=== PATIENT | female | born 1955 | race Caucasian/White ===

== ENCOUNTER → 2017-04-14 | Outpatient (CLI) | payer OTHER | END | disposition home or self-care (01) | LOC: GMAM 12:03 | PROVIDERS: ATTEND Family Medicine | DX: E21.2 Other hyperparathyroidism (principal); N39.0 Urinary tract infection, site not specified ==

== ENCOUNTER → 2017-06-08 | Outpatient (CLI) | payer OTHER | END | disposition home or self-care (01) | LOC: MAMMO 13:28 | PROVIDERS: ATTEND Family Medicine | DX: Z12.31 Encounter for screening mammogram for malignant neoplasm of breast (principal) ==

== ENCOUNTER → 2017-08-09 | Outpatient (CLI) | payer BC | END | disposition home or self-care (01) | LOC: GMAM 08:49 | PROVIDERS: ATTEND Family Medicine | DX: E21.2 Other hyperparathyroidism (principal) ==

== ENCOUNTER → 2017-08-15 | Outpatient (CLI) | payer BC | END | disposition home or self-care (01) | LOC: GMAM 16:25 | PROVIDERS: ATTEND Family Medicine | DX: E21.2 Other hyperparathyroidism (principal) ==

== ENCOUNTER → 2017-12-08 | Outpatient (CLI) | payer BC, SELFPAY | END | disposition home or self-care (01) | LOC: GMAM 09:29 | PROVIDERS: ATTEND Family Medicine | DX: E21.2 Other hyperparathyroidism (principal) ==

== ENCOUNTER → 2018-01-09 | Outpatient (CLI) | payer BC | LOC: GMAM 14:24 | PROVIDERS: ATTEND Family Medicine | DX: E21.2 Other hyperparathyroidism (principal); E55.9 Vitamin D deficiency, unspecified ==

== ENCOUNTER → 2018-01-30 | Outpatient (CLI) | payer BC ==
--- NOTE | 2018-01-30 10:30 | US ---
LIMITED ABDOMINAL ULTRASOUND HISTORY:ELEVATED LFT'S COMPARISON: None TECHNIQUE: Grayscale and color Doppler sonographic evaluations of abdominal visceral organs FINDINGS: Liver demonstrates diffusely increased echotexture. No focal mass nor abnormal intrahepatic biliary distention. Major portal veins are patent with unremarkable directions of flow. Gallbladder is unremarkable in appearance with normal wall thickness. No shadowing stones nor pericholecystic fluid is identified. No sonographic Anand's sign. Common bile duct measures 5.5 mm in diameter. Pancreas is suboptimally visualized. Visualized portions of right kidney demonstrate no shadowing stone, hydronephrosis nor cortical lesion. IMPRESSION: 1. No cholelithiasis nor sonographic suggestion of cholecystitis. 2. No abnormal intrahepatic and extrahepatic biliary distention. 3. Either fatty infiltration or parenchymal disease in liver. Electronically signed by: Pepito Rodriguez MD 01/30/2018 10:29 AM [employer]TER
== END ==
LOC: US 09:35
PROVIDERS: ATTEND Family Medicine
DX: R94.5 Abnormal results of liver function studies (principal)

== ENCOUNTER → 2018-03-14 | Outpatient (CLI) | payer BC ==
--- NOTE | 2018-03-15 12:11 | MRI ---
EXAM DESCRIPTION: Brain w/wo Contrast: Magnetic Resonance Imaging. CLINICAL HISTORY: LEFT MIDDLE CEREBRAL ARTERY STENOSIS COMPARISON: MRI brain without contrast 04/23/2016. TECHNIQUE: Multiplanar, high-field. MRI, multiple conventional sequences, without and with gadolinium IV contrast. No adverse reactions. Multiple axial diffusion sequences. FINDINGS: Small bilateral multiple foci of hyperintense FLAIR and T2-weighted signal in the periventricular white matter and bob-white matter junctions of the cerebral hemispheres. More right than left. No hemorrhage mass effect or edema. No abnormal contrast enhancement. . Normal signal in the bilateral basal ganglia. No hemorrhage, no cerebral edema, no mass-effect. Normal contrast enhancement. Normal signal in the brainstem and cerebellar hemispheres. No hemorrhage, no cerebral edema, no mass-effect. Normal contrast enhancement. Concordance of the diffusion and non-diffusion sequences with no evidence of acute or subacute infarction. Cortical sulci, ventricles, and other CSF spaces, and the subdural spaces are normally configured for patients age except frontal and posterior parietal lobe cortical sulci are minimally prominent. No effacement or displacement. No midline shift. No extra-axial hemorrhage. Normal contrast enhancement. Normal flow signal void in the major vessels of the cap[place] Robert, and the venous sinuses. IACs are symmetric bilaterally. Minimal edema or fluid signal in the inferior right mastoid air cells; left cells are unremarkable. mastoid air cells. No mass effect bilateral Cerebellopontine angles. Normal contrast enhancement. Pituitary gland occupies less than 50% of the sella. Normal contrast enhancement. Base of the cerebellar tonsils is at the level of the foramen magnum. Unremarkable signal bilateral paranasal sinuses. The bony calvarium is intact. IMPRESSION: 1. Scattered bilateral small hyperintensities in the periventricular white matter more right than left cerebral hemispheres. Some are seen in the bilateral bob-white matter junctions. No hemorrhage mass effect or cerebral edema or abnormal contrast enhancement. These are most likely related to cerebral microvascular disease. Less likely related to demyelination, migraine headaches, vasculitis, or old inflammatory process. No diffusion restriction. 2. More likely chronic than acute inflammatory findings in the right mastoid air cells. 3. Stable since the prior study in March 2016. Electronically signed by: Michele Rooney MD 03/15/2018 12:10 PM CDT
== END ==
LOC: LAB.O 13:22
PROVIDERS: ATTEND Psychiatry & Neurology Neurology
DX: G20 Parkinson's disease (principal); I66.02 Occlusion and stenosis of left middle cerebral artery; Z01.812 Encounter for preprocedural laboratory examination

== ENCOUNTER → 2018-12-28 | Outpatient (CLI) | payer BC | LOC: GMAM 10:24 | PROVIDERS: ATTEND Family Medicine | DX: E21.2 Other hyperparathyroidism (principal); E55.9 Vitamin D deficiency, unspecified ==

== ENCOUNTER → 2019-04-02 | Outpatient (CLI) | payer BC | LOC: GMAM 15:01 | PROVIDERS: ATTEND Family Medicine | DX: E21.2 Other hyperparathyroidism (principal) ==

== ENCOUNTER → 2019-08-30 | Outpatient (CLI) | payer BC ==
--- NOTE | 2019-09-04 14:50 | MAM ---
EXAM DESCRIPTION: 3D Screening BILATERAL : Digital Mammography. CLINICAL HISTORY: 64 years Female SCREEN . No complaints. No personal history of breast cancer. Remote family history of breast cancer. Menarche age 12. No childbirth. Postmenopausal. HRT 5 or more years ago.. Lifetime risk of developing breast cancer (Tyrer-Cuzick model)(%): 8.4. COMPARISON: 2-D digital screening bilateral mammography 06/08/2017.. TECHNIQUE: Bilateral CC and MLO projection full-field images, digital tomosynthesis mammographic technique. Bilateral digital 2-D full-field MLO images. CAD not available for tomosynthesis or 2-D images. FINDINGS: The breast parenchymal density pattern is: Heterogeneously dense breast tissue, which may obscure small masses. No skin thickening or nipple retraction. Stable superior lateral right intramammary lymph node. Prominent vascular structures or ducts near the nipple bilaterally stable. No new focal, stellate mass or density, focal asymmetry , and no suspicious microcalcifications bilaterally. Stable mammograms compared to prior study. Taking into account, differences in mammographic technique. IMPRESSION: Benign exam. BIRAD CATEGORY: 2 BENIGN FINDINGS. RECOMMENDATIONS: FOLLOW UP: Routine digital bilateral mammographic screening, one year interval from August 2019. Written communication explaining the IMPRESSION and follow-up, will be mailed to the patient and referring health care provider. According to the [employer], yearly mammograms are recommended starting at age 40 and continuing as long as a woman is in good health. Any breast change noted on a breast self-exam should be reported promptly to the patient's healthcare provider. Breast MRI is recommended for women with an approximately 20-25% or greater lifetime risk of breast cancer, including women with a strong family history of breast or ovarian cancer and women who have been treated for Hodgkin's disease. A negative mammographic report should not delay tissue diagnosis in patients with significant clinical history or physical findings. Extremely dense breast tissue limits the sensitivity of digital mammography. Electronically signed by: Michele Rooney MD 09/04/2019 2:48 PM CDT
== END ==
LOC: GMAM 11:55
PROVIDERS: ATTEND Family Medicine
DX: Z12.31 Encounter for screening mammogram for malignant neoplasm of breast (principal); E21.2 Other hyperparathyroidism; E55.9 Vitamin D deficiency, unspecified; E11.9 Type 2 diabetes mellitus without complications; I10 Essential (primary) hypertension

== ENCOUNTER → 2019-08-31 | Outpatient (CLI) | payer BC | LOC: GMAM 12:28 | PROVIDERS: ATTEND Family Medicine | DX: I10 Essential (primary) hypertension (principal); E11.9 Type 2 diabetes mellitus without complications ==

== ENCOUNTER → 2020-09-29 | Outpatient (CLI) | payer BC | LOC: LAB.NP 11:19 | PROVIDERS: ATTEND Family Medicine | DX: E21.2 Other hyperparathyroidism (principal); E11.9 Type 2 diabetes mellitus without complications; E55.9 Vitamin D deficiency, unspecified; I10 Essential (primary) hypertension ==

== ENCOUNTER → 2020-10-07 | Outpatient (CLI) | payer BC ==
--- NOTE | 2020-10-09 18:30 | MAM ---
EXAM DESCRIPTION: 3D Screening BILATERAL : Digital Mammography. CLINICAL HISTORY: 65 years Female SCREEN . No complaints. Remote family history of breast cancer. Menarche age 12. No childbirth. Menopause age unknown. HRT 5 or more years ago.. Lifetime risk of developing breast cancer (Tyrer-Cuzick model)(%): 8.1. COMPARISON: Bilateral screening digital breast tomosynthesis August 2019 and bilateral screening digital breast 2-D imaging May 2017. TECHNIQUE: Bilateral CC and MLO projection full-field images, digital tomosynthesis mammographic technique. Bilateral digital 2-D full-field MLO images. CAD available for 2-D images. FINDINGS: The breast parenchymal density pattern is: Scattered areas of fibroglandular density. No skin thickening or nipple retraction. Solitary microcalcifications. Intramammary lymph nodes are stable. Retroareolar nodular fibroglandular changes are stable. No new focal, stellate mass or density, focal asymmetry , and no suspicious microcalcifications bilaterally. Stable mammograms compared to prior study. IMPRESSION: Benign exam. BIRAD CATEGORY: 2 BENIGN FINDINGS. RECOMMENDATIONS: FOLLOW UP: Routine digital bilateral mammographic screening, one year interval from September 2020. Written communication explaining the IMPRESSION and follow-up, will be mailed to the patient and referring health care provider. According to the [employer], yearly mammograms are recommended starting at age 40 and continuing as long as a woman is in good health. Any breast change noted on a breast self-exam should be reported promptly to the patient's healthcare provider. Breast MRI is recommended for women with an approximately 20-25% or greater lifetime risk of breast cancer, including women with a strong family history of breast or ovarian cancer and women who have been treated for Hodgkin's disease. A negative mammographic report should not delay tissue diagnosis in patients with significant clinical history or physical findings. Extremely dense breast tissue limits the sensitivity of digital mammography. Electronically signed by: Michele Rooney MD 10/09/2020 6:28 PM [employer]
== END ==
LOC: MAMMO 10:30
PROVIDERS: ATTEND Family Medicine
DX: Z12.31 Encounter for screening mammogram for malignant neoplasm of breast (principal)

== ENCOUNTER → 2020-11-18 | Outpatient (CLI) | payer BC ==
--- NOTE | 2020-11-19 08:56 | CT ---
Procedure: CT LUNG SCREENING Exam Date: November 18, 2020. Ordering Provider: Nader Singletary Clinical Indication: other nonspecific abnormal finding of lung field . No cigarette smoking. This patient meets eligibility criteria for low-dose CT lung cancer screening. Comparison: Chest radiograph September 29. Technique: Using a multislice scanner, sequential helical axial imaging was obtained in the thorax, 2.5 mm thickness, 2.5 mm separation, from the level of the thoracic inlet through the lung bases without IV contrast. A low dose protocol was utilized for BMI greater than 30: BMI: 36. CTDI: 2.92 mGy. 120. kVp. 75 mA. DLP 106 mGy-cm. 2D sagittal and coronal reconstructed images, 6.0 mm thickness, were obtained. This exam was performed according to our departmental dose optimization program which includes use of automated exposure control, adjustment of the mA and/or kV according to patient size and/or use of iterative reconstruction technique. Nodule measurements under 10 mm are given as mean value of 3 axes diameters. FINDINGS: Lungs and large airways: Diffuse mosaic density in the lungs bilaterally. No abnormal nodules and no mass. No acute infiltrate. Pleura and space: Bilateral scattered thickening diffuse and focal. No calcification or acute process. Mediastinum and maycol: evaluation limited by low dose technique and lack of IV contrast. Small lymph nodes but no dominant soft tissue masses. Heart and great vessels: Coronary artery calcifications. Chest wall, lower neck, axillae: Evaluation also limited by same factors as described above. Normal-sized axillary nodes. Upper abdomen: Evaluation limited by low-dose technique. No free air or free fluid. Gallbladder visualized. Normal density and size of the adrenal glands and spleen. Possible small sliding hiatal hernia. Other partially included organs showing negative findings. Osseous structures: Evaluation limited by low dose MIP technique. Shoulder clavicular and sternal arthrosis. No destructive or blastic lesions. Minimal spondylosis of the thoracic spine. IMPRESSION: 1. Early emphysematous changes in the lungs. No mass or abnormal nodule. No acute infiltrate.. [facility] Best Practice Recommendations: please see below for Lung RADS category and FOLLOW-UP.* *Lung RADS category Category 1 - No nodule or definitely benign nodules (probability of malignancy less than 1%). Follow-up: Continue annual screening with Low Dose Chest CT in 12 months. Electronically signed by: Michele Rooney MD 11/19/2020 8:54 AM [employer]
== END ==
LOC: CT 10:53
PROVIDERS: ATTEND Family Medicine
DX: R91.8 Other nonspecific abnormal finding of lung field (principal); J43.9 Emphysema, unspecified